=== PATIENT | male | born 1945 | race Caucasian/White ===

== ENCOUNTER 2018-08-15 07:00 | Outpatient (CLI) | payer MEDICARE, SELFPAY ==
[2018-08-15 12:44] LABS: CREATININE 1.13 mg/dL (0.70-1.30); Potassium 4.2 mmol/L (3.5-5.1)
[2018-08-15 12:44] LABS: Hemoglobin A1C 5.9 % (4.5-6.2)
== END 2018-08-15 07:20 ==
PROVIDERS: PCP Family Medicine; Visit Provider Family Medicine
DX: E11.9 Type 2 diabetes mellitus without complications (principal)
CPT/HCPCS: 36415; 82565; 83036; 84132

== ENCOUNTER 2018-12-26 08:40 | Outpatient (CLI) | payer MEDICARE, SELFPAY ==
[2018-12-26 11:03] LABS: Uric Acid 8.3 mg/dL (3.5-7.2)
== END 2018-12-26 09:00 ==
PROVIDERS: PCP Family Medicine; Visit Provider Family Medicine
DX: E79.0 Hyperuricemia without signs of inflammatory arthritis and tophaceous disease (principal); E11.65 Type 2 diabetes mellitus with hyperglycemia
CPT/HCPCS: 36415; 83036; 84550

== ENCOUNTER 2020-09-13 11:09 | Outpatient (CLI) | payer MEDICARE, SELFPAY ==
[2020-09-13 12:44] LABS: Hemoglobin A1C 6.2 % (<5.7)
[2020-09-13 13:09] LABS: CREATININE 1.3 mg/dL (0.70-1.30); Estimated GFR 53.82 (mL/min/1.73m2); Uric Acid 8.4 mg/dL (3.5-7.2)
== END 2020-09-13 11:10 | disposition home or self-care (01) ==
LOC: LOS 11:10
PROVIDERS: PCP Family Medicine; Referring Provider Family Medicine; Visit Provider Family Medicine
DX: I10 Essential (primary) hypertension (principal); R73.9 Hyperglycemia, unspecified; M10.9 Gout, unspecified
CPT/HCPCS: 36415; 82565; 83036; 84550

== ENCOUNTER 2020-12-20 14:44 | Outpatient (CLI) | payer MEDICARE, SELFPAY ==
--- NOTE | 2020-12-20 14:30 | RT.EKG_ITS ---
APPROVED REPORT Exam: Resting ECG Reason for Exam: Patient feeling SOB with exertion Patient Location: O HR:69 bpm ECG Measurements Heart Rate 69 AXIS PA 181 P 64 QRSd 85 QRS 20 QT 394 T 61 QTc 422 Conclusion Sinus rhythm...normal P axis, V-rate 60- 99
== END 2020-12-20 14:45 | disposition home or self-care (01) ==
LOC: DI.CM 14:46
PROVIDERS: PCP Family Medicine; Visit Provider Family Medicine
DX: R06.09 Other forms of dyspnea (principal)
CPT/HCPCS: 93010

== ENCOUNTER 2020-12-29 01:25 | Outpatient (CLI) | payer MEDICARE, SELFPAY ==
--- NOTE | 2020-12-29 07:30 | DI.NM_ITS ---
APPROVED REPORT Exam: Pharmacologic Patient Location: Out-Patient Room/Bed: Stress Nurse: CHARLIE Hadley Ordering Provider:SARANYA GOMEZ, Contact Number: [phone] BMI: 40.40 Baseline Rhythm: Sinus Rhythm Comment: Lead III T wave inversion Indications: BRAUN, Chest pain Medical History Medical History: HTN, DM2, Bladder CA, HLD Cardiac Medications: Simvastatin, HCTZ, enalapril, amlodipine Allergies: gabapentin Cardiac Risk Factors: Family Hx, HTN, HLD, DM, Obesity Previous Cardiac Procedures: none Pretest Chest Pain Characteristics: none Exercise History: Sedentary Physical Disabilities: Legs Lung Sounds: Clear to auscultation Heart Sounds: Regular Stress Test Details Test: Pharmacologic stress testing performed using 0.4 mg of regadenoson per 5 mL given IV over 10 s econds. Nuclear Acquisition: Rest Tc-99m/Stress Tc-99m 1 day Rest Isotope: Tc-99m Sestamibi. Dose: 12.7 Date: 12/29/2020 Injection Time: 0930 Stress Isotope: Tc-99m Sestamibi. Dose: 42 Date: 12/29/2020 Injection Time: 1124 HR Resting HR Supine: 67 bpm Max Heart Rate (APMHR): 144 bpm Resting HR Standin bpm Target HR (85% APMHR): 122 bpm Max HR Achieved: 112 bpm % of APMHR: 77 Recovery HR: 77 bpm HR response to stress: Normal HR response to stress BP Resting BP Supine: 160/74 mmHg Resting BP Standin/70 mmHg Max BP: 174/70 mmHg Recovery BP: 162/76 mmHg BP response to stress: Normal blood pressure response to stress. ECG Resting ECG: Sinus Rhythm Ectopy: frequent PVCs Comment: T wave inversion lead III Stress ECG: Sinus Tachycardia ST Change: No significant ST segment changes noted Arrhythmia: VPC's Comment: Frequent PVCs, periods of bigem Recovery ECG: Sinus Rhythm Recovery ST Change: No significant ST segment changes noted Recovery Arrhythmia: VPC Comment: Frequent PVCs, periods of bigem Clinical Rate Pressure Product: [id number] Stress ECG Conclusion 1. The resting electrocardiogram was within normal limits 2. The patient underwent pharmacologic stress with regadenoson 3. Peak heart rate achieved was 77% of maximal predicted for age 4. Electrocardiographically the test was nondiagnostic due to inadequate heart rate 5. Immature ventricular contractions were noted Stress Test Summary STAGE HR BP Symptoms NOTES Supine 67 160/74 1 min post Lexiscan injection 111 SOB 3 min post Lexiscan injection 94 174/70 6 min post Lexiscan injection 77 162/76 SOB resolved Standing 71 158/70 Walking lexiscan performed at o% grade and 1.0 mph MPI Conclusion Normal myocardial perfusion without evidence of ischemia or prior infarction
[2020-12-29] MEDS: Regadenoson 0.4 MG/5 ML SYR IVP (10:56)
== END 2020-12-29 01:45 ==
PROVIDERS: PCP Family Medicine; Visit Provider Family Medicine
DX: R07.9 Chest pain, unspecified (principal); E78.5 Hyperlipidemia, unspecified; E11.9 Type 2 diabetes mellitus without complications; E66.09 Other obesity due to excess calories
CPT/HCPCS: 78452; 93016; 93018; 93017; J2785

== ENCOUNTER 2021-03-03 10:44 | Outpatient (CLI) | payer MEDICARE, SELFPAY ==
[2021-03-03 13:14] LABS: Anion Gap 11.4 mmol/L (3-11); BUN 32 mg/dL (7-18); CO2 23.6 mmol/L (21.0-32.0); CREATININE 1.5 mg/dL (0.70-1.30); Calcium 8.3 mg/dL (8.5-10.1); Chloride 109 mmol/L (98-107); Glucose 140 mg/dL (74-106); Potassium 4.8 mmol/L (3.5-5.1); Sodium 144 mmol/L (136-145)
[2021-03-03 13:28] LABS: D-Dimer 832 ng/mlFEU (<500)
== END 2021-03-03 10:45 | disposition home or self-care (01) ==
LOC: LOS 10:45
PROVIDERS: PCP Family Medicine; Referring Provider Family Medicine; Visit Provider Family Medicine
DX: E87.1 Hypo-osmolality and hyponatremia; R06.02 Shortness of breath
CPT/HCPCS: 36415; 80048; 85379

== ENCOUNTER 2021-10-05 11:13 | Outpatient (CLI) | payer MEDICARE, SELFPAY ==
[2021-10-05 12:46] LABS: Hemoglobin A1C 6.3 % (<5.7)
[2021-10-05 13:14] LABS: Anion Gap 12.1 mmol/L (3-11); BUN 29 mg/dL (7-18); CO2 21.9 mmol/L (21.0-32.0); CREATININE 1.4 mg/dL (0.70-1.30); Calcium 8.9 mg/dL (8.5-10.1); Calculated LDL 29 mg/dL (<100); Chloride 107 mmol/L (98-107); Cholesterol 132 mg/dL (<200); Estimated GFR 49.27 (mL/min/1.73m2); Glucose 114 mg/dL (74-106); HDL Cholesterol 96 mg/dL (40-60); Potassium 4.9 mmol/L (3.5-5.1); Sodium 141 mmol/L (136-145); Triglyceride 38 mg/dL (<150)
== END 2021-10-05 11:14 | disposition home or self-care (01) ==
LOC: LOS 11:14
PROVIDERS: PCP Family Medicine; Referring Provider Family Medicine; Visit Provider Family Medicine
DX: E87.1 Hypo-osmolality and hyponatremia (principal); E78.5 Hyperlipidemia, unspecified; R73.9 Hyperglycemia, unspecified
CPT/HCPCS: 36415; 80048; 80061; 83036

== ENCOUNTER 2022-10-18 11:27 | Outpatient (CLI) | payer MEDICARE, SELFPAY ==
[2022-10-18 12:50] LABS: HCT 31.7 % (40.0-50.0); HGB 10.3 g/dL (13.5-17.5); MCH 30.2 pg (27.0-33.0); MCHC 32.5 % (32.0-36.0); MCV 93 fL (80-95); MPV 10.1 fL (8.0-11.0); Platelet Count 213 10^3/uL (130-400); RBC 3.41 10^6/uL (4.36-5.78); RDW 13.1 % (11.8-14.1); RDW-SD 44.5 fL
[2022-10-18 13:11] LABS: Anion Gap 11.7 mmol/L (3-11); BUN 27 mg/dL (7-18); CO2 22.3 mmol/L (21.0-32.0); CREATININE 1.5 mg/dL (0.70-1.30); Calcium 8.9 mg/dL (8.5-10.1); Chloride 107 mmol/L (98-107); Estimated GFR 47.65 (mL/min/1.73m2); Glucose 149 mg/dL (74-106); NT-proBNP 143 pg/mL (<300); Potassium 4.2 mmol/L (3.5-5.1); Sodium 141 mmol/L (136-145)
[2022-10-18 18:09] LABS: Lab Add On Test DONE
[2022-10-18 19:35] LABS: Hemoglobin A1C 5.9 % (<5.7)
== END 2022-10-18 11:28 | disposition home or self-care (01) ==
LOC: LOS 11:28
PROVIDERS: PCP Family Medicine; Visit Provider Family Medicine
DX: R73.09 Other abnormal glucose (principal); R06.02 Shortness of breath; R53.83 Other fatigue; E87.1 Hypo-osmolality and hyponatremia; Z12.5 Encounter for screening for malignant neoplasm of prostate
CPT/HCPCS: 36415; 80048; 85027; 83036; 83880

== ENCOUNTER 2023-10-24 00:49 | Outpatient (CLI) | payer MEDICARE, SELFPAY ==
[2023-10-24 12:22] LABS: HCT 38.5 % (40.0-50.0); HGB 12.7 g/dL (13.5-17.5); MCH 30.7 pg (27.0-33.0); MCV 93 fL (80-95); MPV 10.8 fL (8.0-11.0); Platelet Count 155 10^3/uL (130-400); RBC 4.14 10^6/uL (4.36-5.78); RDW 12.9 % (11.8-14.1); WBC 6.01 10^3/uL (4.4-10.8)
[2023-10-24 12:28] LABS: CREATININE 1.3 mg/dL (0.70-1.30); Estimated GFR 56.23 (mL/min/1.73m2); Potassium 4.4 mmol/L (3.5-5.1)
[2023-10-24 13:32] LABS: Hemoglobin A1C 6.9 % (<5.7)
[2023-10-24 16:32] LABS: Lab Add On Test DONE
[2023-10-25 09:06] LABS: HIV-1/2 Ag & Ab Screen Negative (Negative)
[2023-10-25 09:27] LABS: HBs Antibody, Quant <3.1 mIU/mL (See Note); Hep B Surface Ab Negative (See Note); Hepatitis B Core Antibody Negative (Negative); Hepatitis B Surface Antigen Negative (Negative)
[2023-10-25 19:30] LABS: Hepatitis C Ab w Rflx HCV PCR Negative (Negative)
== END 2023-10-24 00:50 | disposition home or self-care (01) ==
LOC: LOS 00:50
PROVIDERS: PCP Family Medicine; Visit Provider Family Medicine
DX: Z00.00 Encounter for general adult medical examination without abnormal findings (principal); E11.51 Type 2 diabetes mellitus with diabetic peripheral angiopathy without gangrene; I70.209 Unspecified atherosclerosis of native arteries of extremities, unspecified extremity; I10 Essential (primary) hypertension; Z11.59 Encounter for screening for other viral diseases; R53.83 Other fatigue
CPT/HCPCS: 36415; 85027; 86704; 86706; 86803; 87340; 87389; 82565; 83036; 84132